=== PATIENT | male | born 1940 | race Caucasian/White ===

== ENCOUNTER 2016-05-13 13:02 | Emergency (ER) | payer OTHER ==
[~2016-05-13] VITALS: Ht 188 cm; Wt 98.8 kg
[2016-05-13 13:05] VITALS: BP 132/70; PULSE 86; RESP 18; TEMP 98; O2SAT 98
[2016-05-13] MEDS ORDERED: ALBUAER3 INH (13:23)
[2016-05-13] MEDS ORDERED: PRED20 PO (13:23)
[2016-05-13] MEDS ORDERED: DOXA1TAB34 PO (13:23)
[2016-05-13] MEDS ORDERED: IPRA0.02 NEB (13:23)
[2016-05-13] MEDS ORDERED: OXYC-404 PO (13:23)
[2016-05-13] MEDS ORDERED: BACT800T5 PO (13:28)
[2016-05-13] MEDS ORDERED: CLINDAMYCIN PHOS 600 MG/4 ML VIAL IM ONE (13:30)
--- NOTE | 2016-05-13 13:34 | PD ---
HPI Chief Complaint: Skin Problem Time Seen by Provider: 13:16 Travel History International Travel<30 days: No Contact w/Intl Traveler<30days: No Traveled to known affect area: No History of Present Illness HPI This patient complains of infection on his feeding tube site. He noticed some redness and there is a bit of green drainage. No fever. Symptoms severity is mild. Duration one day. 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) Tetanus Vaccination: > 5 Years Influenza Vaccination: No Past Surgical History Other Surgery: Yes (g tube placement) Social History Alcohol Use: No Tobacco Use: No (quit year ago) Substance Use: No Allergies-Medications (Allergen,Severity, Reaction): Coded Allergies: Bee Sting (Verified Allergy, Severe, 05/13/16) Reported Meds & Prescriptions Reported Meds & Active Scripts Active Reported Oxycodone ER (Oxycodone HCl) 10 Mg Tab 10 Mg PO Q4-6H Doxazosin (Doxazosin Mesylate) 4 Mg Tab 4 Mg PO DAILY Prednisone 20 Mg Tab 20 Mg PO DAILY Ipratropium Neb (Ipratropium [place]) 0.5 Mg/2.5 Ml Amp 0.5 Mg NEB Q6HR NEB Proair Hfa 8.5 GM Inh (Albuterol Sulfate) 90 Mcg/Act Aer 2 Puff INH Q6H PRN 108 mcg/actuation Review of Systems General / Constitutional: No: Fever HENT: No: Headaches Cardiovascular: No: Chest Pain or Discomfort Physical Exam Narrative SKIN: Inspection shows no rash or ulcers. Palpation shows no induration or nodules. Psych: Normal mood and affect. Normal insight and judgment. GASTROINTESTINAL: Abdomen soft, non-tender, nondistended. Positive bowel sounds. No hepato-splenomegaly, or palpable masses. No guarding. He has a feeding tube in place. There is some erythema around it but no fluctuance or active drainage. Data Data Last Documented VS Vital Signs Date Time Temp Pulse Resp B/P Pulse Ox O2 Delivery O2 Flow Rate FiO2 05/13/16 13:05 98.0 86 18 132/70 98 Orders Clindamycin Inj (Cleocin Inj) (05/13/16 13:30) MDM Medical Decision Making Medical Screen Exam Complete: Yes Emergency Medical Condition: Yes Medical Record Reviewed: Yes Differential Diagnosis Feeding tube site infection, cellulitis, abscess Narrative Course I have reviewed the patient's electronic medical record. I gave him injection of clindamycin Bactrim DS for 10 days written Presentation consistent with a minor wound infection at the feeding tube site Recommend primary care follow-up antibiotic therapy and return if worsen Diagnosis Primary Impression: Abdominal wall cellulitis Additional Instructions: The patient was advised to follow up with their physician and return if they worsen. Med/Other Pt SpecificInfo: Prescription(s) given Scripts Sulfamethoxazole-Trimethoprim (Bactrim DS)800-160 Mg Tab1 Tab PO BID #20 TAB Ref 0 Prov:Kwasi Jung MD 05/13/16 Disposition: 01 DISCHARGE HOME Condition: Stable Kwasi Jung MD May 13, 2016 13:34
== END 2016-05-13 14:44 | disposition home or self-care (01) ==
LOC: PHED 13:02
DX: L03.311 Cellulitis of abdominal wall (principal)
CPT/HCPCS: 96372

== ENCOUNTER 2017-07-22 13:08 | Emergency (ER) | payer OTHER ==
[~2017-07-22] VITALS: Ht 188 cm; Wt 80.2 kg
[~2017-07-22 13:08] MED LIST: ALBUAER3 INH; BACT800T5 PO; DOXA1TAB34 PO; IPRA0.02 NEB; OXYC-404 PO; PRED20 PO
[2017-07-22 13:17] VITALS: BP 137/62; PULSE 68; RESP 18; TEMP 98.2; O2SAT 98
[2017-07-22 14:26] LABS: BILIRUBIN, URINE NEG (NEG); BLOOD, URINE NEG (NEG); GLUCOSE,URINE NEG (NEG); KETONE, URINE NEG (NEG); NITRITE,URINE NEG (NEG); URINE COLOR YELLOW (YELLW/STRAW); URINE LEUKOCYTE ESTERASE TRACE (NEG)
[2017-07-22 14:42] LABS: RBC, URINE 0-3 /hpf (0-3); SQUAMOUS EPITHELIAL CELL URINE 0-5 /hpf (0-5); WBC, URINE 0-2 /hpf (0-5)
[2017-07-22] MEDS ORDERED: LEVO25TA4 PO (14:47)
--- NOTE | 2017-07-22 14:52 | PD ---
HPI Chief Complaint: Complaint Time Seen by Provider: 14:41 Travel History International Travel<30 days: No Contact w/Intl Traveler<30days: No Traveled to known affect area: No History of Present Illness HPI 76-year-old male with a history of hypothyroid and throat cancer presents emergency department for evaluation of scrotal swelling, pain, rash that has been present for approximately 2 weeks. He says that his pain is "sore", nonradiating, worse with standing. Says his pain decreases with sitting. He says that this rash has been present for some time as well. He says he been using lugh-uyn-inxmqwa medications such as medicated powder to reduce his symptoms however, it is still painful. Says that he has been diagnosed with a hernia previously and had a hernia belt however, he has not been using this because of the rash that he has. Patient says that he has had bowel movements that are normal for him. Says that since February he admits to having frequency of urine particularly at night. He denies dysuria however. Says that he has difficulty urinating until he lays down and then feels as if he can urinate. He has not been evaluated by his primary care physician for any of these complaints. PFSH Past Medical History Cancer: Yes (laryngeal ) COPD: Yes Reproductive: Yes (Prostrate ) Respiratory: Yes (TRACH) Thyroid Disease: Yes Influenza Vaccination: No Past Surgical History Oral Surgery: Yes (laryngeal) Other Surgery: Yes (g tube placement) Social History Alcohol Use: Yes (occas) Tobacco Use: No (former) Substance Use: No Allergies-Medications (Allergen,Severity, Reaction): Coded Allergies: bee venom protein (honey bee) (Unverified Allergy, Severe, 07/22/17) Reported Meds & Prescriptions Reported Meds & Active Scripts Active Nystop Topical (Nystatin Topical) 100,000 Unit/Gm Powd 1 Applic TOPICAL Q12HR Reported Levothyroxine (Levothyroxine Sodium) 25 Mcg Tab Unknown Dose PO DAILY Review of Systems Except as stated in HPI: all other systems reviewed are Neg Physical Exam Narrative GENERAL: Well-developed well-nourished no apparent distress SKIN: Focused skin assessment warm/dry. HEAD: Atraumatic. Normocephalic. EYES: Pupils equal and round. No scleral icterus. No injection or drainage. ENT: No nasal bleeding or discharge. Mucous membranes pink and moist. NECK: Trachea midline. No JVD. No lymphadenopathy CARDIOVASCULAR: Regular rate and rhythm. No murmur appreciated. RESPIRATORY: No accessory muscle use. Clear to auscultation. Breath sounds equal bilaterally. GASTROINTESTINAL: Abdomen soft, non-tender, nondistended. GENITOURINARY: Circumcised. Testes descended bilaterally without evidence of rotation. Bilateral groin and testicles erythematous with scaling. Markedly enlarged left testicle compared to the right. Mildly tender to palpation. Unable to identify testicle.No urethral discharge. MUSCULOSKELETAL: No obvious deformities. No clubbing. No cyanosis. No edema. NEUROLOGICAL: Awake and alert. No obvious cranial nerve deficits. Motor grossly within normal limits. Normal speech. PSYCHIATRIC: Appropriate mood and affect; insight and judgment normal. Data Data Last Documented VS Vital Signs Date Time Temp Pulse Resp B/P (MAP) Pulse Ox O2 Delivery O2 Flow Rate FiO2 07/22/17 13:17 98.2 68 18 137/62 (87) 98 Orders Orders Urinalysis - C+S If Indicated (07/22/17 13:14) Us Testicles W Doppler (07/22/17 ) Ed Discharge Order (07/22/17 17:10) Labs Laboratory Tests Test 07/22/17 14:12 Urine Collection Type CLEAN CATCH Urine Color YELLOW Urine Turbidity CLEAR Urine pH 6.0 Urine Specific [place] LESS/EQUAL 1.005 Urine Protein NEG mg/dL Urine Glucose (UA) NEG mg/dL Urine Ketones NEG mg/dL Urine Occult Blood NEG Urine Nitrite NEG Urine Bilirubin NEG Urine Urobilinogen 0.2 MG/DL Urine Leukocyte Esterase TRACE Urine RBC 0-3 /hpf Urine WBC 0-2 /hpf Urine Squamous Epithelial Cells 0-5 /hpf Microscopic Urinalysis Comment CULT NOT INDICATED Urine Collection Time 14:12 [facility] Medical Decision Making Medical Screen Exam Complete: Yes Emergency Medical Condition: Yes Differential Diagnosis Hydrocele, varicocele, inguinal hernia, testicular torsion Narrative Course 76-year-old male with a history of hypothyroid and throat cancer presents emergency department for evaluation of scrotal swelling, pain, rash that has been present for approximately 2 weeks. He says that his pain is "sore", nonradiating, worse with standing. Says his pain decreases with sitting. He says that this rash has been present for some time as well. He says he been using giiu-ign-zbmaobg medications such as medicated powder to reduce his symptoms however, it is still painful. Says that he has been diagnosed with a hernia previously and had a hernia belt however, he has not been using this because of the rash that he has. Patient says that he has had bowel movements that are normal for him. Says that since February he admits to having frequency of urine particularly at night. He denies dysuria however. Says that he has difficulty urinating until he lays down and then feels as if he can urinate. He has not been evaluated by his primary care physician for any of these complaints. Vital signs are stable. Physical exam findings consistent with a inguinal hernia versus mass. He also has some redness with scaling, consistent with intertrigo. Last Impressions Scrotum Ultrasound 07/22/17 0000 Signed Impressions: CONCLUSION: 1. There appears to be a large left inguinal hernia containing bowel and fat a nd extending into the left hemiscrotum. This could be further evaluated with CT , if needed. 2. Otherwise, the testicles have a normal appearance without mass and blood fl ow is documented bilaterally. Patient's history and physical is reassuring. Pt describes the ability to self- reduce this hernia and he does not describe any pain only "pressure". While discussing patient's urinary history, he describes what may be an enlarged prostate but denies any urinary retention or pain with urination. I discussed the findings of the ultrasound and labs today with the patient and . I strongly advised patient to follow-up with a urologist and general surgeon. I strongly advised him to follow-up with his primary care physician as well as his symptoms could worsen resulting in a worse illness. Patient also has intertrigo that is been persistent for several months according to patient. Nystatin powder prescribed. Patient and state understanding will comply. Diagnosis Primary Impression: Intertrigo Additional Impression: Hernia Referrals: Reese Mojica MD,Corby Olson DO General Surgeon Primary Care Physician Urologist Additional Instructions: Follow-up with primary care physician as soon as possible. Follow-up with urologist for evaluation of the urinary problem. Your urinalysis did not indicate a urinary tract infection. Dr. Fritz is a urologist that may evaluate you for your urinary issues. Dr. Mojica is a general surgeon that may evaluate you for the hernia. Scripts Nystatin Topical (Nystop Topical) 100,000 Unit/Gm Powd 1 APPLIC TOPICAL Q12HR for Infection, #30 GM 0 Refills Prov: America Lawson MD 07/22/17 Disposition: 01 DISCHARGE HOME Condition: Stable Antoinette Lindquist July 22, 2017 14:52
--- NOTE | 2017-07-22 16:58 | RADRPT ---
EXAM DATE: 07/22/2017 3:40 PM EDT AGE/SEX: 76 years / Male INDICATIONS: Testicular pain. CLINICAL DATA: This is the patient's initial encounter. Patient reports that signs and symptoms have been present for > 1 year and indicates a pain score of 4/10. MEDICAL/SURGICAL HISTORY: . Thyroid disease. Laryngeal cancer. . Laryngeal surgery. G-tube miles cement. COMPARISON: No prior [facility] exams available for comparison. MEASUREMENTS (cm x cm x cm): Right Testicle:__5.5 x 3.9 x 2.9 cm Left Testicle:__5.4 x 3.4 x 1.9 cm FINDINGS: Right Testicle: Homogeneous echotexture without intra or extratesticular mass. Blood flow is symmet lit and within normal limits. No hydrocele or varicocele. There is a cyst in the epididymal head janet suring 7 mm. Left Testicle: Homogeneous echotexture without intra or extratesticular mass. Blood flow is symmetr ic and within normal limits. No hydrocele or varicocele. Epididymis is within normal limits. Scrotum: Within normal limits. There is an apparent left inguinal hernia with bowel and fat extending into the left inguinal canal a nd region of the left hemiscrotum. CONCLUSION: 1. There appears to be a large left inguinal hernia containing bowel and fat and extending into the left hemiscrotum. This could be further evaluated with CT, if needed. 2. Otherwise, the testicles have a normal appearance without mass and blood flow is documented bilat erally. Electronically signed by: Perry Keene MD 07/22/2017 4:56 PM EDT
[2017-07-22] MEDS ORDERED: NYST10007 TOPICAL (17:25)
== END 2017-07-22 17:27 | disposition home or self-care (01) ==
LOC: PHEFT 13:08
DX: L30.4 Erythema intertrigo (principal); K40.90 Unilateral inguinal hernia, without obstruction or gangrene, not specified as recurrent; E03.9 Hypothyroidism, unspecified; J44.9 Chronic obstructive pulmonary disease, unspecified; Z87.891 Personal history of nicotine dependence; Z85.21 Personal history of malignant neoplasm of larynx; Z79.899 Other long term (current) drug therapy
CPT/HCPCS: 76870; 81001; 93975; 99284

== ENCOUNTER → 2017-08-19 | Day surgery (SDC) | payer OTHER ==
[~2017-08-19] VITALS: Ht 185.4 cm; Wt 80.3 kg
[~2017-08-19] MED LIST changes: -ALBUAER3 INH; -BACT800T5 PO; +CHLORHEXIDINE GLUCONATE 2 % 1 PACK (2 CLOTHS) TOPICAL PRN; -DOXA1TAB34 PO; -IPRA0.02 NEB; +LACTATED RINGER'S 1000 ML IV PRN; +LEVO25TA4 PO; +METOPROLOL TARTRATE 25 MG TAB PO PRN; +NYST10007 TOPICAL; -OXYC-404 PO; +POVIDONE IODINE 5% (ANTISEPSIS KIT) 4 APPLICATIONS EACH NARE PRN; -PRED20 PO; +SODIUM CHLORID 0.9% 500 ML IV PRN; +ceFAZolin 2 GM/DEX PREMIX 50 ML IV SCH
[2017-08-19 12:32] VITALS: BP 149/73; PULSE 55; RESP 20; TEMP 98.7; O2SAT 100
[2017-08-19 12:56] LABS: AUTOMATED NEUTROPHIL # 3.2 TH/MM3 (1.8-7.7); BASOPHIL % 0.7 % (0.0-2.0); EOSINOPHIL # 0.1 TH/MM3 (0-0.4); EOSINOPHIL % 2.1 % (0.0-4.0); HEMATOCRIT 38.4 % (39.0-51.0); HEMOGLOBIN 12.6 GM/DL (13.0-17.0); LYMPH % 29.4 % (9.0-44.0); LYMPHOCYTE # 1.6 TH/MM3 (1.0-4.8); MEAN CELL VOLUME 90.6 FL (80.0-100.0); MEAN CORPUSCULAR HEMOGLOBIN 29.8 PG (27.0-34.0); MEAN PLATELET VOLUME 7.8 FL (7.0-11.0); MONO % 9.6 % (0.0-8.0); MONOCYTE # 0.5 TH/MM3 (0-0.9); NEUT % 58.2 % (16.0-70.0); PLATELET COUNT 235 TH/MM3 (150-450); RED BLOOD COUNT 4.24 MIL/MM3 (4.50-5.90); RED CELL DISTRIBUTION WIDTH 14.2 % (11.6-17.2); WHITE BLOOD COUNT 5.6 TH/MM3 (4.0-11.0)
[2017-08-19 13:15] LABS: BICARBONATE 25.9 MEQ/L (21.0-32.0); CALCIUM 8.6 MG/DL (8.5-10.1); CREATININE 0.68 MG/DL (0.60-1.30)
--- NOTE | 2017-08-20 21:42 | EKG ---
Date Performed: 08/19/2017 Time Performed: 12:18:18 PTAGE: 76 years EKG: SINUS BRADYCARDIA WITH OCCASIONAL VENTRICULAR PREMATURE COMPLEXES MARKED LEFT AXIS DEVIATIO N POSSIBLE LEFT VENTRICULAR HYPERTROPHY ABNORMAL ECG NO PREVIOUS TRACING DOCTOR: Kim Pearson Interpretating Date/Time 08/20/2017 21:40:35
== END | disposition home or self-care (01) ==
LOC: HSDC 11:30
PROVIDERS: ATTEND Surgery
DX: K40.90 Unilateral inguinal hernia, without obstruction or gangrene, not specified as recurrent (principal); R94.31 Abnormal electrocardiogram [ECG] [EKG]; Z53.8 Procedure and treatment not carried out for other reasons
CPT/HCPCS: 80048; 85025; 93005; G0463; J7120; 99211